=== PATIENT | male | born 1950 | race Caucasian/White ===

== ENCOUNTER 2017-10-19 01:52 | Emergency (ER) | payer MEDICARE, OTHER ==
[~2017-10-19] VITALS: Ht 188 cm; Wt 91.0 kg
[2017-10-19 02:05] VITALS: BP 158/89
[2017-10-19] MEDS ORDERED: ONDANSETRON ODT 4 MG PO ONE (02:30)
[2017-10-19] MEDS ORDERED: HYDROcodone/APAP 5/325 TABLET PO ONE (02:30)
[2017-10-19] MEDS ORDERED: IBUPROFEN 200 MG TABLET PO ONE (02:30)
[2017-10-19] MEDS ORDERED: ROSU10TA PO (02:49)
[2017-10-19] MEDS ORDERED: ONDANSETRON ODT 4 MG ONE (03:00)
[2017-10-19] MEDS ORDERED: IBUPROFEN 200 MG TABLET ONE (03:00)
[2017-10-19] MEDS ORDERED: HYDROcodone/APAP 5/325 TABLET ONE (03:01)
== END 2017-10-19 04:11 | disposition home or self-care (01) ==
LOC: ED 03:47
DX: S16.1XXA Strain of muscle, fascia and tendon at neck level, initial encounter (principal); S29.012A Strain of muscle and tendon of back wall of thorax, initial encounter; E78.5 Hyperlipidemia, unspecified; V49.49XA Driver injured in collision with other motor vehicles in traffic accident, initial encounter; Y93.89 Activity, other specified; Y92.89 Other specified places as the place of occurrence of the external cause; Y99.9 Unspecified external cause status
CPT/HCPCS: 72072; 72125; 99284

== ENCOUNTER → 2018-03-12 | Outpatient (CLI) | payer OTHER, MEDICARE ==
[~2018-03-12] MED LIST: ROSU10TA PO
== END ==
LOC: CFH 12:15
PROVIDERS: ATTEND Registered Nurse Registered Nurse First Assistant
DX: M50.321 Other cervical disc degeneration at C4-C5 level (principal); M50.322 Other cervical disc degeneration at C5-C6 level; M50.323 Other cervical disc degeneration at C6-C7 level; M50.21 Other cervical disc displacement, high cervical region; M50.222 Other cervical disc displacement at C5-C6 level; M50.223 Other cervical disc displacement at C6-C7 level; M75.50 Bursitis of unspecified shoulder; N40.0 Benign prostatic hyperplasia without lower urinary tract symptoms; M48.02 Spinal stenosis, cervical region
CPT/HCPCS: 72050; 72141